=== PATIENT | male | born 1990 | race Caucasian/White ===

== ENCOUNTER 2017-03-04 22:06 | Emergency (ER) | payer MEDICAID ==
--- NOTE | 2017-03-04 22:30 | ED Physician Chart ---
ED Chief Complaint/HPI - Patient Information Date Seen:: 03/04/17 Time Seen:: 22:25 Chief Complaint:: Cough History of Present Illness:: 26 yo male had cough for 2 weeks. The cough was productive of a few clear sputum with headache, sore throat and fatigue. Patient denied fever, only some chills. The cough has became worse with increasing SOB. He stated chest pain with cough and deep breath. Allergies:: Allergies Allergy/AdvReac Type Severity Reaction Status Date / Time No Known Allergies Allergy Verified 03/04/17 22:21 Vitals:: Vital Signs - 8 hr 03/04/17 22:07 Temp 97.2 F HR 82 RR 20 BP 140/98 O2 Sat % 100 ED Review of Systems - Review of Systems General/Constitutional: No fever, Chills, Weakness Skin: No bruising Head: Headache Eyes: No pain ENT: Nasal drainage Neck: No neck pain Cardio Vascular: Chest pain Pulmonary: SOB GI: Nausea Musculoskeletal: Muscle pain ED Past Medical History - Past Medical History Past Medical History: No significant medical hx Social History: Smoker, Alcohol, Illicit Drug Use (marijuana) Surgical History: None Family Medical History - Family Member Mother History Unknown: Yes ED Physical Exam - Physical Examination General/Constitutional: Awake, Alert Head: Atraumatic Eyes: PERRL, EOMI Skin: No ecchymosis ENMT: Nasal exam nl Neck: No nuchal rigidity Other Respiratory comments:: Cough, wheeze, crackles bilaterally Cardio Vascular: RRR, No murmur, gallop, rubs, NL S1 S2 GI: No tenderness/rebounding/guarding Extremities: normal strength in all extremities Neuro/Psych: Alert/oriented ED Labs/Radiology/EKG Results - Radiology Results Results: CXR: no focal consolidation ED Assessment - Assessment General Assessment: Bronchitis Assessment/Comments:: CBC, CMP ABG DuoNeb CXR Azithromycin 500mg IV D/c home Azithromycin 250mg po qd Robitussin F/u PCP or return to ER if symptoms worsen ED Septic Shock - . Is Septic Shock (SBP<90, OR Lactate>4 mmol\L) present?: No - <6hrs of presentation: Vital Signs: Vital Signs - 8 hr 03/04/17 22:07 Temp 97.2 F HR 82 RR 20 BP 140/98 O2 Sat % 100 ED Reassessment (Disposition) - Reassessment Reassessment Condition:: Improved - Patient Disposition Discharge/Transfer:: Home ED Discharge Plan - Patient Disposition Admit/Discharge/Transfer: PT DISCHARGED HOME Condition at Disposition: Stable Prescriptions: Azithromycin [Zithromax] 250 mg PO DAILY #4 tab Guaifenesin DM [Robitussin DM] 10 ml PO Q6H PRN #120 ml PRN Reason: Cough Or Congestion Instructions: Bronchitis, [id number] Additional Instructions: MAKE A FOLLOW UP WITH PRIMARY CARE DOCTOR TOMORROW, COMPLY WITH PRESCRIBED MEDICATION, DRINK PLENTY OF FLUIDS, GO BACK TO EMERGENCY ROOM IF SYMPTOMS WORSEN.
[2017-03-04] MEDS ORDERED: Albuterol/Ipratropium Neb 3 ML AERS HHN ONE ×2 (22:33→22:55)
[2017-03-04 23:08] LABS: pH 7.39 (7.35-7.45)
[2017-03-04 23:09] LABS: ALLEN TEST POSITIVE
[2017-03-04 23:15] LABS: % BASOPHILS 1.2 % (0.0-2.0); % EOSINOPHILS 8.4 % (0.0-5.0); % LYMPHOCYTES 32.1 % (20.0-50.0); % MONOCYTES 7.5 % (2.0-10.0); % NEUTROPHILS 50.8 % (40.0-80.0); BASOPHILE ABSOLUTE 0.1 Th/cumm (0-0.2); EOSINOPHILE ABSOLUTE 0.7 Th/cmm (0.1-0.4); HEMATOCRIT 49.7 % (41.0-60); HEMOGLOBIN 16.4 gm/dL (12-16); LYMPHOCYTE ABSOLUTE 2.6 Th/cmm (1.5-3.0); MEAN CELL VOLUME 90.2 fl (80-99); MEAN CORPUSCULAR HEMOGLOBIN 29.8 pg (26.0-30.0); MEAN CORPUSCULAR HGB CONC 33.1 pg (28.0-36.0); MEAN PLATELET VOLUME 8.9 fl; MONOCYTE ABSOLUTE 0.6 Th/cmm (0.3-1.0); NEUTROPHILE ABSOLUTE 4.2 Th/cmm (1.8-8.0); PLATELET COUNT 224 Th/cmm (150-400); RED CELL DISTRIBUTION WIDTH 12.1 % (11.5-20.0); WHITE BLOOD COUNT 8.2 Th/cmm (4.8-10.8)
[2017-03-04 23:25] LABS: ALB/GLOB RATIO 2.1 (1.0-1.8); ALBUMIN 4.5 gm/dL (4.2-5.5); ALKALINE PHOSPHATASE 33 U/L (34-104); ANION GAP 10.8 (7.0-16.0); BILIRUBIN,TOTAL 0.5 mg/dL (0.3-1.0); BUN - UREA NITROGEN 14 mg/dL (7-25); CALCIUM SERUM 8.7 mg/dL (8.6-10.3); CHLORIDE 106 mEq/L (98-107); CREATININE - SERUM 0.9 mg/dL (0.7-1.3); GFR AFRICAN-AMERICAN > 60.0 ml/min (>90); GFR NON AFRICAN-AMERICAN > 60.0 ml/min; GLUCOSE 103 mg/dL (70-105); POTASSIUM SERUM 3.8 mEq/L (3.5-5.1); SGOT 23 U/L (13-39); SGPT/ALT 33 U/L (7-52); SODIUM SERUM 136 mEq/L (136-145); TOTAL PROTEIN,SERUM 6.7 gm/dL (6.0-8.3)
[2017-03-04] MEDS ORDERED: Azithromycin 500 MG in Sodium Chloride 0.9% 250 ML IV ONE (23:31)
[2017-03-04] MEDS ORDERED: Guaifenesin DM 10 ML UDC PO PRN (23:35)
--- NOTE | 2017-03-05 07:22 | Diagnostic Imaging Report ---
Portable chest x-ray Time: 2308 hours History: Cough shortness of breath Allowing for portable technique the heart size is normal. No focal pulmonary parenchymal processes. No hilar or mediastinal abnormalities. Impression: No acute abnormalities.
== END 2017-03-05 00:10 | disposition home or self-care (01) ==
LOC: ER 22:06
DX: J40 Bronchitis, not specified as acute or chronic (principal); F17.200 Nicotine dependence, unspecified, uncomplicated
CPT/HCPCS: 36415-UA; 36600-90; 71045-TC; 80053-TC; 82803-TC; 85025-TC; J0456

== ENCOUNTER 2018-03-04 20:39 | Emergency (ER) | payer BC, MEDICAID ==
[2018-03-04] MEDS ORDERED: Albuterol/Ipratropium Neb 3 ML AERS HHN ONE ×2 (20:54→21:13)
--- NOTE | 2018-03-04 21:00 | ED Physician Chart ---
ED Chief Complaint/HPI - Patient Information Date Seen:: 03/04/18 Time Seen:: 20:50 Chief Complaint:: shortness of breath History of Present Illness:: Patient developed shortness of breath tonight at 7 to 7:30 PM. He's had a slight cough productive of clear sputum for last 1 week that has now subsided. No fever. Patient ran out of his Pro Air metered-dose inhaler a couple days ago. Allergies:: Allergies Allergy/AdvReac Type Severity Reaction Status Date / Time No Known Allergies Allergy Verified 03/04/17 22:21 Historian:: Patient Review:: Nurse's Note Reviewed ED Review of Systems - Review of Systems General/Constitutional: No fever, No chills Skin: No skin lesions Head: No headache Eyes: No loss of vision ENT: No earache Neck: No neck pain Cardio Vascular: No chest pain Pulmonary: SOB, Cough GI: No nausea, No vomiting, No diarrhea G/U: No dysuria Musculoskeletal: No bone or joint pain, No back pain, No muscle pain Endocrine: No polyuria, No polydipsia Psychiatric: No prior psych history Hematopoietic: No bruising Allergic/Immuno: No urticaria Neurological: No focal symptoms ED Past Medical History - Past Medical History Past Medical History: Asthma/COPD Family History: Diabetes Melitus Social History: Non Smoker, Alcohol (occasional alcohol consumption), Other ( occasional alcohol consumption) Surgical History: None Psychiatricy History: None Medication: Reviewed Family Medical History - Family Member Mother History Unknown: Yes ED Physical Exam - Physical Examination General/Constitutional: Awake, Well-developed, well-nourished, Alert, No distress, GCS 15, Non-toxic appearing, Ambulatory Other Gen/Cons comments:: No respiratory distress; speaks in full sentences Head: Atraumatic Eyes: Lids, conjuctiva normal, PERRL, EOMI Skin: Nl inspection, No rash, No skin lesions, No ecchymosis, Well hydrated, No lymphadenopathy ENMT: External ears, nose nl, Nasal exam nl, Lips, teeth, gums nl Neck: Nontender, Full ROM w/o pain, No JVD, No nuchal rigidity, No bruit, No mass, No stridor Other Respiratory comments:: 1.5 out of 4 diffuse inspiratory and expiratory wheezing Cardio Vascular: RRR, No murmur, gallop, rubs, NL S1 S2 GI: No tenderness/rebounding/guarding, No organomegaly, No hernia, Normal BS's, Nondistended, No mass/bruits, No McBurney tenderness : No CVA tenderness Extremities: No tenderness or effusion, Full ROM, normal strength in all extremities, No edema, Normal digits & nails Neuro/Psych: Alert/oriented, DTR's symmetric, Normal sensory exam, Normal motor strength, Judgement/insight normal, Mood normal, Normal gait, No focal deficits Misc: Normal back, No paraspinal tenderness ED Assessment - Assessment General Assessment: At 2125 patient felt improved after the breathing treatment ED Septic Shock - . Is Septic Shock (SBP<90, OR Lactate>4 mmol\L) present?: No ED Reassessment (Disposition) - Reassessment Reassessment Condition:: Improved - Diagnosis Diagnosis:: Acute exacerbation asthma - Aftercare/Follow up Instructions Medication Prescribed:: Pro Air metered-dose inhaler to take 2 puffs every 4 hours as necessary for shortness of breath and prednisone 60 mg a day 4 days to start tomorrow at this time. - Patient Disposition Discharge/Transfer:: Home Condition at Disposition:: Stable, Improved
== END 2018-03-04 21:55 | disposition home or self-care (01) ==
LOC: ER 20:39
DX: J45.901 Unspecified asthma with (acute) exacerbation (principal)
CPT/HCPCS: 94640; Z7502